=== PATIENT | female | born 1945 | race Caucasian/White ===

== ENCOUNTER 2021-12-31 10:45 | Outpatient (RCR) | payer OTHER, SELFPAY | END 2021-12-31 16:25 | disposition home or self-care (01) | PROVIDERS: PCP Family Medicine; Visit Provider Family Medicine | DX: M51.26 Other intervertebral disc displacement, lumbar region (principal) | CPT/HCPCS: 97140 ==

== ENCOUNTER 2023-04-21 11:15 | Outpatient (RCR) | payer OTHER, MEDICARE, SELFPAY | END 2023-04-29 12:16 | disposition home or self-care (01) | PROVIDERS: PCP Family Medicine; Visit Provider Family Medicine | DX: R42 Dizziness and giddiness (principal); R26.81 Unsteadiness on feet; Z51.89 Encounter for other specified aftercare | CPT/HCPCS: 97110; 97112; 97162 ==

== ENCOUNTER 2023-12-22 06:10 | Day surgery (SDC) | payer MEDICARE, SELFPAY ==
[2023-12-22 06:52] VITALS: BP 161/84; PULSE 75; RESP 16; TEMP 36.7; O2SAT 93; BMI 29.4
[2023-12-22] MEDS: LACTATED RINGERS 1000 ML 1,000 ML 100 ML IV (07:00)
[2023-12-22] MEDS: SODIUM CHLORIDE 0.9 % (FLUSH) 10 ML SYRINGE IVF (07:00)
[2023-12-22 07:20] VITALS: BP 159/84; PULSE 80; RESP 16; O2SAT 95
[2023-12-22] MEDS: MIDAZOLAM HCL 1 MG/ML inj IVP (07:20)
[2023-12-22] MEDS: fentaNYL 100 MCG/2 ML inj IVP (07:20)
--- NOTE | 2023-12-22 07:22 | W.PM.H&PU ---
History & Physical Update History & Physical Update H&P Reviewed and patient assessed: No changes noted
--- NOTE | 2023-12-22 07:24 | PM.ORPRC ---
Procedure Note Date of procedure: 12/22/23 Procedure: PREOPERATIVE DIAGNOSES: 1. Left distal radius fracture (displaced, intra-articular) POSTOPERATIVE DIAGNOSES: 1. Left distal radius fracture (displaced, intra-articular) NAME OF OPERATION: 1. Left distal radius open reduction with internal fixation of intra-articular fracture with 3+ parts SURGEON: Hayder Cedeno MD GROUND CREWMAN [place] SUPPORT: Stefano Morales P.A.-C. - An licensed occupational therapy assistant was critical for this case to aid in patient positioning, limb manipulation, tissue retraction, closure, and splinting. ANESTHESIA: Axillary block IMPLANTS: Harvinder [employer] DVR Crosslock distal radius locking plate with 2.7mm distal locking screws, 2.7 mm distal locking pegs, and 2.7mm proximal locking and nonlocking screws. TOURNIQUET: 48 minutes at 250 mmHg. INDICATIONS: The patient is a pleasant, 78-year-old female who sustained a left wrist injury after a fall. They had difficulty with use of the extremity and deformity. Workup included xrays which revealed an unstable fracture. Given these findings, surgery was recommended to stabilize the fracture and allow for healing in a more anatomic position. Prior to surgery the risks and benefits of the procedure were discussed with patient, all questions were answered, and informed consent was obtained. FINDINGS: Closed, displaced, intra-articular distal radius fracture. PROCEDURE: Following a thorough discussion of risks, benefits, and alternatives, consent was obtained and the operative extremity was marked. An axillary nerve block was performed by anesthesia staff. The patient was then brought to the operating room and placed supine on the operating table. Induction of anesthesia was achieved and patient was provided with 1 g IV Ancef preoperatively for prophylaxis. The operative extremity was prepped and draped in usual sterile fashion . A surgical time-out was performed confirming patient identity surgical site and surgical procedure. The operative extremity was exsanguinated and the tourniquet inflated to 250 mmHg. A longitudinal incision was made overlying the FCR tendon. Sharp incision through skin and subcutaneous tissue allowed identification of the FCR tendon. The superficial sheath was sharply divided, the tendon retracted ulnarly, and the deep fascial sheath also released. The FPL was retracted ulnarly and the pronator quadratus was sharply released from the radial border of the radius and subperiosteally elevated. The brachioradialis was released from its insertion on the distal radius. The fracture was encountered and cleared of interposed periosteum and fracture hematoma. A reduction was performed and the appropriate plate selected. Plate was temporarily fixed in position with a K-wire. Temporary stabilization allowed C-arm fluoroscopy to confirm proper fracture reduction and plate positioning. The oblong hole was filled with a nonlocking screw. The distal holes were then filled with a combination of full the threaded locking screws and smooth locking pegs. Fluoroscopic imaging was used to confirm that these screws then pegs were extra-articular in the subchondral bone. The remaining proximal shaft screws were drilled and filled with 2.7 mm locking and nonlocking screws. Final fluoroscopic imaging revealed near anatomic alignment of the fracture with good placement of the plate and screws. At this stage, the wound was thoroughly irrigated with normal saline. The pronator quadratus was repaired with 3-0 Vicryl [id number] interrupted sutures. The tourniquet was released. Total tourniquet time was 48 minutes. Hemostasis was achieved with electrocautery. Skin closure was then completed with 3-0 Vicryl inverted interrupted subcutaneous stitches, 2-0 Stratafix subcuticular stitches, and Dermabond for the skin. Dressings were applied along with a volar/dorsal splint. The patient was awoken from anesthesia and transferred to PACU in stable condition. PLAN: 1. Ice and elevation of operative extremity to for pain and swelling. 2. Ice, acetominphen or ibuprofen as needed for pain control. 3. Oxycodone as needed for more severe pain 4. No lifting, pushing, pulling, or weight-bearing on the operative extremity. 5. Follow up in Orthopedic Clinic in 1-2 weeks for wound check and splint removal. 6. Will convert to a removable brace and initiate formal physical therapy following that visit. 7. Follow-up with Dr. Cedeno in Orthopedic Clinic 6 weeks postoperatively.
[2023-12-22 07:25] VITALS: BP 132/62; PULSE 74; RESP 16; O2SAT 96
[2023-12-22] MEDS: CEFAZOLIN 1 GM inj IVP (07:30)
--- NOTE | 2023-12-22 07:30 | CRLHL7_ITS ---
For Patients: As a result of the Century Cures Act, medical imaging exams and procedure reports are released immediately into your electronic medical record. You may view this report before your referring provider. If you have questions, please contact your health care provider. HISTORY: Left wrist fracture. TECHNIQUE: Fluoroscopy provided intraoperatively for the Orthopedic surgery service. Three spot films acquired. COMPARISON: 12/09/2023. FINDINGS: Volar plate and screw fixation of the distal left radius. Hardware intact and appropriately seated. Osteoarthritic changes of the 1st CMC articulation. IMPRESSION: 1. Volar plate and screw fixation of the distal left radius. Hardware intact and appropriately seated. Dictated by Elton Srivastava MD @ 12/22/2023 3:14:18 PM (Electronically Signed)
--- NOTE | 2023-12-22 07:31 | SUR.PREOP ---
TIME?OUT:?07 PT/Monica Stapleton RN/Dr. Henrik MDA?VERIFICATION?OF?SURGICAL?SITE left wrist,?PROCEDURE,?AND?CONSENT OBTAINED?PRIOR?TO?INVASIVE?PROCEDURE.
--- NOTE | 2023-12-22 07:36 | P.NB_ITS ---
Nerve Block Nerve Block Time Seen by Provider: 07:25 Date Seen: 12/22/23 Type of block requested by surgeon for post-operative analgesia: axillary Side: left Time out performed: Yes Verification of patient name: Yes Verification of date of : Yes Site marking: site marked Name of person performing procedure: Henrik Continuous monitoring Was continuous monitoring of O2 sat, B/P, restaurant bartender, recorded every 15 minutes?: Yes Procedure Checklist: sterile prep, needles and gloves Ultrasound guided. Images saved: Yes Medications given in 5ml increments after negative aspiration: Ropivicaine %: 0.5 mL: 30 Needle gauge: 22 Patient tolerated procedure well: Yes Additional comments: Needle noted adjacent to nerve Block Charges Block Charge (with Pro Fee): Brachial Plexus Use of Ultrasound Machine for Block: Yes- US Guidance/pain block
--- NOTE | 2023-12-22 07:37 | W.ANESCHARGE ---
Anesthesia Charges Start Date/Time Anesthesia Start Date: 12/22/23 Anesthesia Start Time: 07:30 Stop Date/Time Anesthesia Stop Date: 12/22/23 Anesthesia Stop Time: 09:25 Summary Extremes of Age - Over 70 or under 1: MDA
--- NOTE | 2023-12-22 08:00 | SUR.OPER ---
PATIENT QUESTIONS ANSWERED SATISFACTORILY PREOPERATIVELY. PATIENT BROUGHT TO OR #1 PER CART. Patient positioned supine on OR #1 bed. The perioperative team supported right arm bilaterally on arm boards. Final approval of positioning by surgeon.
[2023-12-22 09:25] VITALS: BP 150/80; PULSE 64; RESP 16; TEMP 36.2; O2SAT 94
--- NOTE | 2023-12-22 09:25 | W.ANESCHARGE ---
Anesthesia Charges Start Date/Time Anesthesia Start Date: 12/22/23 Anesthesia Start Time: 07:30 Stop Date/Time Anesthesia Stop Date: 12/22/23 Anesthesia Stop Time: 09:25
[2023-12-22 09:40] VITALS: BP 143/78; PULSE 68; RESP 16; O2SAT 96
[2023-12-22 10:00] VITALS: BP 158/78; PULSE 75; RESP 16; O2SAT 97
== END 2023-12-22 10:25 | disposition home or self-care (01) ==
PROVIDERS: PCP Family Medicine; Visit Provider Orthopaedic Surgery
PROC: (CPT 25575; principal; 2023-12-22 07:30)
DX: S52.572A Other intraarticular fracture of lower end of left radius, initial encounter for closed fracture (principal); G89.18 Other acute postprocedural pain
CPT/HCPCS: 25609; 01830; 64415; 73110; 76942; 99100; A4580; C1713; J0690; J2250; J2704; J2795; J3010; J7120

== ENCOUNTER 2024-03-09 14:15 | Outpatient (RCR) | payer MEDICARE, SELFPAY ==
--- NOTE | 2024-01-27 14:48 | OT.OPOE ---
OT Outpatient Ortho Eval OT Outpatient Ortho Eval* Start: 01/27/24 07:57 Freq: Status: Active Protocol: Document 01/27/24 08:02 AMB (Rec: 01/27/24 14:45 AMB [id number]) E-signed By Nelida Flood, OTR/L, CLT, MAMMAL CONTROL AGENT OT OP Ortho Eval Details Complexity Complexity Low Insurance Information Insurance Information [facility] Insurance Information Comments MC due 04/26/24 Outpatient History/Precautions Current Condition/Medical Diagnosis Referring Provider Stefano Morales PA-C Medical Diagnoses Z98.890 ERICKA davalos with ORIF Treatment Diagnosis R53.1 Weakness LUE M24.632 Stiffness LUE wrist Date of Onset DOI: 12/09/23, DOS: 12/22/23 Other Conditions PMH (copied from ortho chart): Active Problems (Updated 12/29 @ 10:02 by Stefano Morales PA-C) History of open reduction and internal fixation (ORIF) procedure (Acute 12/22/23) 1 week postop left distal radius open reduction with internal fixation of intra- articular fracture with 3+ parts (Dr. Cedeno 12/22/2023) Z98.890 - Other specified postprocedural states (ICD-10) Osteoarthritis of carpometacarpal joint of left thumb (Acute) Severe M18.12 - Unilateral primary osteoarthritis of first carpometacarpal joint, left hand (ICD-10) Distal radius fracture, left ( Acute) 78 year old female closed, acute left distal radius intra -articular fracture involving the metaphysis of the distal radius and radial styloid with ulnar positive position of approximately 6 mm, volar angulation 10-11 degrees (date of injury 12/09/2023) S52.502A - Unspecified fracture of the lower end of left radius, initial encounter for closed fracture (ICD-10) Strain of right biceps (Acute) biceps subluxation S46.211A - Strain of muscle, fascia and tendon of other parts of biceps, right arm, initial encounter (ICD-10) Arthritis of right acromioclavicular joint (Acute ) M19.011 - Primary osteoarthritis, right shoulder (ICD-10) Rotator cuff tear, right ( Acute) subscap and supra M75.101 - Unspecified rotator cuff tear or rupture of right shoulder, not specified as traumatic (ICD-10) Medical History (Updated 12/29 @ 10:02 by Stefano Morales PA-C) Herniated disc Surgical History (Updated 01/14 @ 10:02 by Stefano Morales PA-C) History of open reduction and internal fixation (ORIF) procedure (12/22/23) Z98.890 - Other specified postprocedural states (ICD-10) No significant past surgical history Medical/Functional History Medical History Reviewed Yes Prior Level of Function/Mobility Full, pain-free use of LUE. 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 Pt sustained a LUE DR fx and was seen for ortho consult, underwent ORIF on 12/22/23. Pt feels she is doing ok, pain and swelling have substantially reduced and she feels she is able to move her hand better. Pt still has pain with activities, rates average pain 4/10 but really only 0-1/10 at rest. Goniometric Comments Goniometric Comments Goniometric Comments 01/27/24 AROM of BUE is WNL throughout with the exception of the LUE forearm and wrist. AROM of the LUE forearm and wrist are as follows: Wrist: Flex/Ext: 45/30 UD/RD: 26/20 Forearm: Pro/Sup? 60/65 Hand: [place]: Full Composite fist: Full Hand Pinch/Roll Scale Man Strength Hand Pinch/Roll Scale Man Strength Hand Pinch/Roll Scale Man Strength Left Hand,Right Hand Left Hand Roll Scale Man Strength Position 1 in Elbow 15 Flexion (lbs) Lateral Pinch Strength (lbs) 4 Right Hand Roll Scale Man Strength Position 1 in Elbow 32 Flexion (lbs) Lateral Pinch Strength (lbs) 9 Three Point Pinch (lbs) 9 OT Objective Data Skin/Wounds/Edema Comments 01/27/24 Prior to OT session, incision was covered with surgical glue. All glue fell off with MT. Incision is healing well, fully closed, no s/s of infection. OT Problems Problems Problems Decreased Strength,Decreased Range of Motion,Decreased Dexterity,Pain,Lifting, Gripping,Pinching Other Problems Opening Containers,Dressing, Computer Patient Potential Good Assessment Assessment Assessment Pt is a very pleasant 78yo referred to OT to address LUE pain, weakness and limited AROM following DR davalos with ORIF . Due to these limitations, pt states she is having a hard time opening containers, gripping and lifting items, typing, chopping and preparing food and pulling up her pants . Pt will benefit from skilled OT intervention to address deficits and restore full, pain-free use of her LUE . Occupational Therapy Treatment Plan - OP Potential Rehabilitation Potential Good Set Goals Goals Set with Patient Yes Goals Goals 1. Pt will be independent and compliant with HEP in order to resume full, pain-free use of the involved UE. 3 weeks 2. Pt will demonstrate full, pain-free AROM of the involved UE in order to improve ability to grasp and hold. 6 weeks 3. 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 8 weeks. Target Date 04/27/24 Treatment Plan Treatment Plan Evaluation,Edema Control, Manual Therapy,Wound Care/Scar Management,Therapeutic Exercise,Therapeutic Activities,Self Care/Home Management,Education Expected Frequency 1-2x Week Expected Duration 6-8 Weeks Home Program Home Program Home Program Initiated Home Program Specifics Provided training and practice in non resisted muscle pumps for edema reduction and AROM of the LUE fingers, thumb, wrist, and forearm and light resisted gripping with blue TP . Following demo, pt is able to complete exs with minimal cues. Pt was provided with written instructions and TP for use at home. Certification Certification Statement I Certify That: Therapy Services Provided, Therapy Plan Established, Therapy Plan Reviewed Certification Information Clinic ID # [id number] Initial Certification Date 01/27/24 Recertification Due Date 04/26/24 Provider Signature Required Yes Provider Signature Shows Agreement With POC & Medical Necessity Physician NPI Number Write NPI# Here Physician Comment/Change Comment or Changes Physician Signature & Date Requested Please Sign/Date Here
== END 2024-03-09 15:03 | disposition home or self-care (01) ==
PROVIDERS: PCP Family Medicine; Visit Provider Physician Assistant Surgical
DX: Z98.890 Other specified postprocedural states (principal); R53.1 Weakness; M25.632 Stiffness of left wrist, not elsewhere classified; Z51.89 Encounter for other specified aftercare
CPT/HCPCS: 97110; 97140; 97165; 97530; X5282

== ENCOUNTER 2024-04-29 15:37 | Emergency (ER) | payer MEDICARE, SELFPAY ==
[2024-04-29 15:41] VITALS: BP 181/100; PULSE 86; RESP 16; TEMP 36.2; O2SAT 95; BMI 28.8
--- NOTE | 2024-04-29 16:08 | ED_ITS ---
HPI - Eye Problem General Chief complaint: Eye Problems Stated complaint: Irritation in eyes Time Seen by Provider: 04/29/24 15:43 History of Present Illness HPI Narrative: This 78-year-old female comes in with bilateral eye irritation and discharge. She states that symptoms began yesterday. She does not report any fever, upper respiratory symptoms otherwise. Related Data Home Medications ?Medication ?Instructions ?Recorded ?Confirmed meloxicam 15 mg tablet 15 mg PO DAILY 10/02/22 03/16/24 tolterodine 2 mg capsule,extended 2 mg PO DAILY 10/02/22 03/16/24 release 24 hr sertraline 50 mg tablet 50 mg PO DAILY 12/09/23 03/16/24 amlodipine 5 mg tablet 2.5 mg PO DAILY 03/16/24 03/16/24 atorvastatin 20 mg tablet 20 mg PO DAILY 03/16/24 03/16/24 omeprazole 20 mg capsule,delayed 20 mg PO DAILY 03/16/24 03/16/24 release Allergies Allergy/AdvReac Type Severity Reaction Status Date / Time bacitracin (From Neosporin Allergy Rash Verified 03/16/24 10:12 ([id number])) ketoconazole Allergy Rash Verified 03/16/24 10:12 neomycin (From Neosporin Allergy Rash Verified 03/16/24 10:12 ([id number])) polymyxin B (From Neosporin Allergy Rash Verified 03/16/24 10:12 ([id number])) Review of Systems Status of ROS: Reports: 10 or more systems reviewed and unremarkable except as noted in History and below Narrative: Constitutional: No fevers, no weight gain or loss. Eyes: Bilateral irritation with matting and discharge. HENT: No congestion, no sore throat, no ear pain. Cardiovascular: No chest pain, no palpitations. Respiratory: No shortness of breath, no wheezes, no cough. Gastrointestinal: No abdominal pain, no vomiting, no diarrhea. Genitourinary: No dysuria, no hematuria. Musculoskeletal: Normal range of motion. Skin: No rashes, no pruritis. Neurological: No dizziness, weakness, sensory change, speech change. Endo/Heme/Allergies: No bruising or bleeding. No polydipsia. Pysch: no suicidality, no anxiety, no insomnia. All other systems reviewed and are negative. PFSH PFSH Medical History (Updated 04/29/24 @ 16:11 by Den Woodward MD) Herniated disc Surgical History (Updated 02/08/24 @ 09:38 by Den Cedeno MD) History of open reduction and internal fixation (ORIF) procedure (12/22/23) ?Z98.890 - Other specified postprocedural states (ICD-10) No significant past surgical history Social History Smoking Status: Never smoker Do you use any of these nicotine containing products: None Second hand tobacco smoke exposure: No How often do you have a drink containing alcohol: never How often do you have six or more drinks on one occasion: Never AUDIT-C Alcohol total score: 0 Non-prescribed substance use: denies use Caffeine: No Are you using contraception or practicing any form of control: No Exam Narrative: Exam Narrative: Constitutional: Well-developed, well-nourished, no acute distress. HEENT: Normocephalic, atraumatic. Eyes bilaterally are mildly erythematous with evidence of purulent discharge. Neck: Normal range of motion. Nontender. Supple. Heart: Intact distal pulses. Lungs: No chest discomfort. No wheezes, rhonchi, or rales. Abdomen: Nontender. Back: Normal range of motion. Extremities: Normal range of motion. No injury. Skin: Intact. No rash. Warm. No erythema or pallor. Neurologic: No altered sensation. No weakness. Alert and oriented. Psychiatric: No suicidality. No anxiety or depression. No insomnia. Nursing notes and vitals signs are reviewed. Const: Vital Signs, click to edit/add: Vital Signs - 24 hr 04/29/24 15:41 Temperature 97.1 F L Pulse Rate [Pulse Oximeter] 86 Respiratory Rate 16 Blood Pressure [Le ft Upper Arm] 181/100 H Pulse Oximetry 95 Oxygen Delivery Me thod Room Air Course Vital Signs Vital signs: Initial Vital Signs Temperature 97.1 F L 04/29/24 15:41 Temperature Source Temporal Artery Scan 04/29/24 15:41 Pulse Rate 86 04/29/24 15:41 Respiratory Rate 16 04/29/24 15:41 Blood Pressure 181/100 H 04/29/24 15:41 Blood Pressure Mean 127 H 04/29/24 15:41 Blood Pressure Position Sitting 04/29/24 15:41 Pulse Oximetry 95 04/29/24 15:41 Oxygen Delivery Method Room Air 04/29/24 15:41 Vital Signs Temperature 97.1 F L 04/29/24 15:41 Pulse Rate 86 04/29/24 15:41 Respiratory Rate 16 04/29/24 15:41 Blood Pressure 181/100 H 04/29/24 15:41 Pulse Oximetry 95 04/29/24 15:41 Oxygen Delivery Method Room Air 04/29/24 15:41 Temperature 97.1 F L 04/29/24 15:41 Pulse Rate 86 04/29/24 15:41 Respiratory Rate 16 04/29/24 15:41 Blood Pressure 181/100 H 04/29/24 15:41 Pulse Oximetry 95 04/29/24 15:41 Oxygen Delivery Method Room Air 04/29/24 15:41 MDM - Eye Problem MDM Narrative Medical decision making narrative: This patient comes in with symptoms typical of bacterial conjunctivitis. She received erythromycin ophthalmic solution to treat her symptoms. This was provided out of the ER from the eye kit. Discharge Plan Discharge Clinical Impression: Conjunctivitis Patient Disposition: Home, Self-Care Condition: Stable Additional Instructions: Use eye drops as prescribed. Follow up with MD return if worsening. Prescriptions: No Action tolterodine 2 mg capsule,extended release 24hr 2 mg PO DAILY meloxicam 15 mg tablet 15 mg PO DAILY amlodipine 5 mg tablet 2.5 mg PO DAILY atorvastatin 20 mg tablet 20 mg PO DAILY omeprazole 20 mg capsule,delayed release(DR/EC) 20 mg PO DAILY sertraline 50 mg tablet 50 mg PO DAILY Follow Up/Referrals: Marie Goodwin DO [Primary Care Provider] - Stand Alone Forms: [facility] Info Instructions
== END 2024-04-29 16:27 | disposition home or self-care (01) ==
LOC: ED 16:11
PROVIDERS: Emergency Provider Emergency Medicine Emergency Medical Services; PCP Family Medicine
DX: H10.023 Other mucopurulent conjunctivitis, bilateral (principal)
CPT/HCPCS: 99283; 99284; A9270

== ENCOUNTER 2025-04-03 07:57 | Day surgery (SDC) | payer MEDICARE, SELFPAY ==
[2025-04-03 08:38] VITALS: BMI 30.3
[2025-04-03] MEDS: LACTATED RINGERS 1000 ML 1,000 ML 100 ML IV (08:45)
[2025-04-03] MEDS: SODIUM CHLORIDE 0.9 % (FLUSH) 10 ML SYRINGE IVF (08:45)
[2025-04-03 09:03] VITALS: BP 148/76; PULSE 96; RESP 16; TEMP 36.6; O2SAT 96
--- NOTE | 2025-04-03 09:15 | CRLHL7_ITS ---
For Patients: As a result of the Cures Act, medical imaging exams and procedure reports are released immediately into your electronic medical record. You may view this report before your referring provider. If you have questions, please contact your health care provider. BREAST WIRE LOCALIZATION USING ULTRASOUND GUIDANCE CLINICAL HISTORY: Left breast cancer LATERALITY: Left LESION: Hypoechoic solid nodule posterior depth left breast 12 o`clock 5 cm from the nipple which measures 7 millimeters. LOCALIZATION WIRE: [place] hookwire. TECHNIQUE: The localization wire was placed using real-time ultrasound guidance with image documentation. Cranial-caudal and medial-lateral digital mammograms were obtained after localization wire placement. CONSENT and TIME OUT: The procedure, risks, and alternatives were explained to the patient and a consent was signed. [place] Protocol was followed including pre-procedure verification that relevant information/documentation was available, reviewed and properly matched to the patient; consent accurate and complete; and equipment and supplies available. Time Out was conducted just prior to starting procedure to verify the four required elements: patient identity, correct side/site marked (if applicable), procedure, relevant images/results properly labeled and displayed (if applicable). PROCEDURE: The skin was prepped with ChloraPrep and 7 cc of 1 percent lidocaine used for local anesthesia. The localization wire was placed within or near the targeted breast lesion using ultrasound guidance. The patient tolerated the procedure well. PROXIMITY OF WIRE TO LESION: Within the lesion adjacent to the clip. IMPRESSION: Successful breast wire localization. ACR not applicable Dictated by Kervin Goldman MD @ 04/03/2025 11:49:54 AM (Electronically Signed)
--- NOTE | 2025-04-03 10:00 | CRLHL7_ITS ---
For Patients: As a result of the Cures Act, medical imaging exams and procedure reports are released immediately into your electronic medical record. You may view this report before your referring provider. If you have questions, please contact your health care provider. LEFT BREAST MAMMOGRAM - POST WIRE PLACEMENT CLINICAL HISTORY: LEFT breast cancer. COMPARISON: 04/03/2025. FINDINGS: Two views LEFT breast specimens submitted. Specimen contains the biopsy clip, the biopsied mass and the localization wire. IMPRESSION: Specimen contains the biopsy clip, the biopsied mass and the localization wire. ACR not applicable. Dictated by: Kervin Goldman MD @04/03/2025 12:18:29 PM/desmond PARVEZ/Dictated by: Kervin Goldman MD @ 04/03/2025 11:48:00 AM (Electronically Signed)
--- NOTE | 2025-04-03 10:44 | W.PM.H&PU ---
History & Physical Update History & Physical Update H&P Reviewed and patient assessed: No changes noted
[2025-04-03 11:39] VITALS: BMI 30.3
--- NOTE | 2025-04-03 11:39 | CRLHL7_ITS ---
For Patients: As a result of the Century Cures Act, medical imaging exams and procedure reports are released immediately into your electronic medical record. You may view this report before your referring provider. If you have questions, please contact your health care provider. CLINICAL HISTORY: Left breast cancer COMPARISON: 04/03/2025 FINDINGS: Two views left breast specimens submitted. Specimen contains the biopsy clip, the biopsied mass and the localization wire. IMPRESSION: Specimen contains the biopsy clip, the biopsied mass and the localization wire. ACR not applicable. Dictated by Kervin Goldman MD @ 04/03/2025 12:18:29 PM (Electronically Signed)
--- NOTE | 2025-04-03 12:06 | SUR.OPER ---
Called pathology and talked to pathologist regarding the second specimen labeling. At the debriefing, Dr. Membreno stated anterior lateral margin left breast. Pathology did not need a new requistion, pathology stated they understand this is a margin and nothing further is needed.
[2025-04-03 12:20] VITALS: BP 117/67; PULSE 68; RESP 16; TEMP 36.4; O2SAT 95
--- NOTE | 2025-04-03 12:26 | P.ANES_ITS ---
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
--- NOTE | 2025-04-03 12:26 | W.ANESCHARGE ---
Anesthesia Charges Start Date/Time Anesthesia Start Date: 04/03/25 Anesthesia Start Time: 10:50 Stop Date/Time Anesthesia Stop Date: 04/03/25 Anesthesia Stop Time: 12:25 Summary Extremes of Age - Over 70 or under 1: SHOWPLACE MANAGER Coding CPT Codes CPT Codes: ANESTH SKIN EXT/PER/ATRUNK - 07169 ([id number]) P2 - PATIENT W/MILD SYST DISEASE, QK - SENIOR [employer] SPECIALIST 2-4 CNCRNT ANES PROC, QX - SHOWPLACE MANAGER SVC W/ MD MED DIRECTION Additional Codes: Summary - Extremes of Age - Over 70 or under 1: SHOWPLACE MANAGER ([id number])
[2025-04-03 12:30] VITALS: BP 98/79; PULSE 67; RESP 16; O2SAT 97
--- NOTE | 2025-04-03 12:36 | P.ANES_ITS ---
Anesthesia Charges Start Date/Time Anesthesia Start Date: 04/03/25 Anesthesia Start Time: 10:50 Stop Date/Time Anesthesia Stop Date: 04/03/25 Anesthesia Stop Time: 12:25 Summary Extremes of Age - Over 70 or under 1: MDA Coding CPT Codes CPT Codes: ANESTH SKIN EXT/PER/ATRUNK - 23656 ([id number]) P2 - PATIENT W/MILD SYST DISEASE, QK - MACHINIST AUTOMOTIVE 2-4 CNCRNT ANES PROC, QX - GRINDER OPERATOR TOOL SVC W/ MD MED DIRECTION Additional Codes: Summary - Extremes of Age - Over 70 or under 1: MDA ([id number])
--- NOTE | 2025-04-03 12:36 | W.ANESCHARGE ---
Anesthesia Charges Start Date/Time Anesthesia Start Date: 04/03/25 Anesthesia Start Time: 10:50 Stop Date/Time Anesthesia Stop Date: 04/03/25 Anesthesia Stop Time: 12:25 Summary Extremes of Age - Over 70 or under 1: MDA Coding CPT Codes CPT Codes: ANESTH SKIN EXT/PER/ATRUNK - 38102 ([id number]) P2 - PATIENT W/MILD SYST DISEASE, QK - MALT [employer] SALES REPRESENTATIVE 2-4 CNCRNT ANES PROC, QX - LIGHTING SPECIALIST SVC W/ MD MED DIRECTION Additional Codes: Summary - Extremes of Age - Over 70 or under 1: MDA ([id number])
[2025-04-03 12:45] VITALS: BP 122/87; PULSE 72; RESP 16; O2SAT 97
[2025-04-03 13:00] VITALS: BP 141/74; PULSE 69; RESP 16; O2SAT 98
--- NOTE | 2025-04-09 11:49 | PM.GSPRC ---
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 Please see consultation note regarding full discussion of treatment recommendations. Risks and benefits of operative intervention were discussed at length with the patient. Risks included but was not limited to: Bleeding, infection, risk of damage to surrounding structures, possible need for additional procedures and postoperative complications such as pneumonia, pulmonary emboli or AL. All questions and concerns were addressed with the patient agreeing to proceed. Procedure Description: Prior to arrival in the operating room, the patient was taken to radiology where a wire was placed to localize the previously placed clip. The patient was then brought to the operating room where anesthesia was induced. The left breast and axilla were prepped and draped in the usual sterile fashion. Timeout was confirmed. Local anesthesia was infiltrated around the tip of the wire. A transverse incision was made with dissection carried down to the specimen. Using electrocautery, the segment of breast tissue containing the tip of the wire was excised. This was sent for evaluation. Radiology called back and confirmed that the clip, wire and around the were present within the specimen. Pathology then called back and confirmed that the margins were appropriate, but close anterior/lateral. The decision was made to remove an additional segment of tissue anterior lateral to be sent for permanent evaluation. Clips were placed into the breast cavity for marking during radiation, if indicated. Hemostasis was assured with cautery. The wound was irrigated and all irrigant suctioned from the wound. Additional local anesthesia was infiltrated. The wounds were then closed in layers using absorbable suture, and Dermbond was placed over the wound. An Ryan wrap was applied around the chest to apply consisting compression to the incision site. The patient was awakened without incident and taken to PACU in stable condition. Sponge, needle and instrument counts were correct x3 at the termination of the case. Findings: Wire localized left breast mass. Anesthesia: MAC and local Surgeon: Aida Membreno MD Estimated blood loss (mL): 5 Additional Specimen Information: 1. Left breast mass 2. Anterior lateral margin Condition: stable Disposition: same day [place] Node Biopsy for Breast Cancer Operation Performed with Curative Intent: Yes Tracers used to Identify sentinel nodes in the upfront surgery (non-neoadjuvant) setting: N/A (Choosing wisely campaign, elderly female with early stage hormone receptor positive/HER2 negative breast cancer) Tracers used to identify sentinel nodes in the neoadjuvant setting: N/A All nodes (colored or non-colored) present at the end of a dye filled lymphatic channel were removed: Not Applicable All significantly radioactive nodes were removed: Not Applicable All palpably suspicious nodes were removed: Not Applicable Biopsy proven positive nodes marked with clips prior to chemotherapy were identified and removed: Not Applicable
== END 2025-04-03 13:35 | disposition home or self-care (01) ==
PROVIDERS: PCP Family Medicine; Visit Provider Surgery
PROC: (CPT 19125; principal; 2025-04-03 10:15)
PROC: (CPT 19125; 2025-04-03 10:15)
DX: C50.812 Malignant neoplasm of overlapping sites of left female breast (principal); Z17.0 Estrogen receptor positive status [ER+]; Z17.21 Progesterone receptor positive status; Z17.32 Human epidermal growth factor receptor 2 negative status
CPT/HCPCS: 19125; 38500; 00400; 19285; 76942; 77065; 99100; C1769; J0690; J1100; J2371; J2405; J2704; J3010; J7120